=== PATIENT | female | born 1980 ===

== ENCOUNTER 2020-11-11 10:59 | Emergency (ER) | payer OTHER ==
--- NOTE | 2020-11-11 12:04 | Emergency Department Report ---
Blank Doc - Documentation Documentation: 40-year-old female that presents with lower abdominal pain, nausea, dysuria. Patient stated had a biopsy performed at another facility. 1- This is a initial triage assessment/medical screening only. Full assessment and work-up will be completed once the patient is in proper hospital gown, ED bed and in a private room setting. This initial assessment/diagnostic orders/clinical plan/ treatment(s) is/are subject to change based on pt's health status, clinical progression and re-assessment by fellow clinical providers in the ED. Further treatment and workup at subsequent clinical providers discretion. Patient/guardians urged not to elope from ED as their condition may be serious if not clinically assessed and managed. 2-labs 3-UA
[2020-11-11 12:51] LABS: Basophils % (Auto) 0.3 % (0.0-1.8); Eosinophils % (Auto) 0.5 % (0.0-4.3); Hematocrit 35.2 % (30.3-42.9); Hemoglobin 11.9 gm/dl (10.1-14.3); Lymphocytes # (Auto) 0.8 K/mm3 (1.2-5.4); Mean Corpuscular HGB Conc 34 % (30-34); Mean Corpuscular Volume 83 fl (79-97); Monocytes # (Auto) 0.4 K/mm3 (0.0-0.8); Monocytes % (Auto) 7.6 % (0.0-7.3); Platelet Count 218 K/mm3 (140-440); Red Blood Count 4.25 M/mm3 (3.65-5.03); Red Cell Distribution Width 14.7 % (13.2-15.2)
[2020-11-11 13:11] LABS: Alanine Aminotransferase 8 units/L (7-56); Albumin 4.2 g/dL (3.9-5); BUN/Creatinine Ratio 8; Blood Urea Nitrogen 4 mg/dL (7-17); Calcium 9.1 mg/dL (8.4-10.2); Hemolysis Index 0
[2020-11-11 13:42] LABS: Bacteria,Urine 1+ /HPF (Negative); Bilirubin,Urine NEG (Negative); Blood,Urine SM (Negative); Color,Urine Colorless (Yellow); Protein,Urine <15 mg/dL mg/dL (Negative); RBC,Urine < 1.0 /HPF (0.0-6.0); Urobilinogen,Urine < 2.0 mg/dL (<2.0)
[2020-11-11] MEDS ORDERED: SODIUM CHLORIDE 0.9% 1000 ML 1,000 ML IV ONE (17:16)
[2020-11-11] MEDS ORDERED: ONDANSETRON 4 MG/2 ML INJ IV ONE (17:16)
--- NOTE | 2020-11-11 17:21 | Emergency Department Report ---
ED Abdominal Pain HPI - General Chief Complaint: Abdominal Pain Stated Complaint: LOWER STOMACH PAIN Time Seen by Provider: 11/11/20 12:03 - History of Present Illness Initial Comments: Patient is 40 years old female with no significant past medical history. Patient presented to the ER complaining of lower abdominal pain for the last 2 days. Patient described her pain as suprapubic area with radiation to the right lower quadrant and left lower quadrant. Patient stated 10 associated with nausea but no vomiting. Patient stated that she felt sweaty this morning. Patient stated that she had a biopsy done for her in another facility. MD Complaint: abdominal pain -: days(s) Location: LLQ, RLQ, suprapubic Radiation: none Migration to: no migration Severity: moderate Associated Symptoms: nausea - Related Data Allergies Allergy/AdvReac Type Severity Reaction Status Date / Time No Known Allergies Allergy Unverified 11/11/20 11:57 ED Review of Systems ROS: Stated complaint: LOWER STOMACH PAIN Other details as noted in HPI Comment: All other systems reviewed and negative Constitutional: chills. denies: fever Respiratory: denies: cough, shortness of breath, SOB with exertion Cardiovascular: denies: chest pain, palpitations Gastrointestinal: abdominal pain, nausea. denies: vomiting, diarrhea, constipation, hematemesis, melena, hematochezia Genitourinary: dysuria. denies: frequency, hematuria Musculoskeletal: denies: back pain Neurological: denies: headache, weakness, numbness, paresthesias, confusion ED Physical Exam - General General appearance: alert, in no apparent distress - Head Head exam: Present: atraumatic, normocephalic, normal inspection - Eye Eye exam: Present: normal appearance, PERRL - ENT ENT exam: Present: mucous membranes dry - Neck Neck exam: Present: normal inspection, full ROM. Absent: tenderness, menin gismus - Respiratory Respiratory exam: Present: normal lung sounds bilaterally - Cardiovascular Cardiovascular Exam: Present: regular rate, normal rhythm, normal heart sounds - GI/Abdominal GI/Abdominal exam: Present: soft, tenderness, normal bowel sounds. Absent: distended, guarding, rebound, rigid, organomegaly, mass, bruit, pulsatile mass, hernia - Extremities Exam Extremities exam: Present: normal inspection, full ROM, normal capillary refill. Absent: tenderness - Back Exam Back exam: Present: normal inspection, full ROM. Absent: CVA tenderness (R), CVA tenderness (L) - Neurological Exam Neurological exam: Present: alert, oriented X3, CN II-XII intact, normal gait, reflexes normal. Absent: motor sensory deficit - Psychiatric Psychiatric exam: Present: normal mood - Skin Skin exam: Present: warm, intact, normal color ED Course Vital Signs 11/11/20 12:00 Temperature 97.9 F Pulse Rate 65 Respiratory 18 Rate Blood Pressure 114/67 O2 Sat by Pulse 99 Oximetry ED Medical Decision Making - Lab Data Result diagrams: 11/11/20 12:22 11/11/20 12:22 - Radiology Data Radiology results: report reviewed - Medical Decision Making Patient is 40 years old female with no significant past medical history. Patient presented to the ER complaining of lower abdominal pain for the last 2 days. Patient described her pain as suprapubic area with radiation to the right lower quadrant and left lower quadrant. Patient stated 10 associated with nausea but no vomiting. Patient stated that she felt sweaty this morning. Patient stated that she had a biopsy done for her in another facility. Labs reviewed and is unremarkable. CT abdomen and pelvis with IV contrast show no acute abnormality except for urinary bladder wall thickening consistent with cystitis. Patient will be treated with Macrobid, Pyridium and Zofran. Patient advised to follow-up with her primary doctor in the next 2 to 3 days and to return to the ER if she develop any new symptoms. Critical care attestation.: If time is entered above; I have spent that time in minutes in the direct care of this critically ill patient, excluding procedure time. ED Disposition Clinical Impression: Acute abdominal pain, Acute cystitis Disposition: 01 HOME / SELF CARE / HOMELESS Is pt being admited?: No Condition: Stable Instructions: Abdominal Pain (ED), Urinary Tract Infection, Adult, [id number], Abdominal Pain, Adult, [id number] Referrals: PRIMARY CARE [Primary Care Provider] - 3-5 Days [facility] [Provider Group] - 3-5 Days
--- NOTE | 2020-11-11 18:34 | Cat Scan Report ---
CT ABDOMEN AND PELVIS WITH CONTRAST INDICATION / CLINICAL INFORMATION: abdominal pain. TECHNIQUE: Axial CT images were obtained through the abdomen and pelvis after 100 mL of Omnipaque [address] scans at this location are performed using CT dose reduction for ALARA by means of automated exposure control. COMPARISON: None available. FINDINGS: LOWER CHEST: No significant abnormality. LIVER: No significant abnormality. GALLBLADDER: No significant abnormality. BILE DUCTS: No significant abnormality. PANCREAS: No significant abnormality. SPLEEN: No significant abnormality. ADRENALS: No significant abnormality. RIGHT KIDNEY / URETER: No significant abnormality. LEFT KIDNEY / URETER: No significant abnormality. STOMACH / SMALL BOWEL: No significant abnormality. COLON: No significant abnormality. APPENDIX: Not visualized but no evidence of. PERITONEUM: No free fluid. No free air. No fluid collection. LYMPH NODES: There are multiple prominent periaortic lymph nodes. Additional bilateral inguinal lymph nodes and iliac chain lymph nodes. AORTA / ARTERIES: No significant abnormality. IVC / VEINS: No significant abnormality. URINARY BLADDER: There is mild stranding around the urinary bladder with mild wall thickening. REPRODUCTIVE ORGANS: There are multiple right adnexal cyst largest measuring approximately 2.2 cm, li terri physiologic. Mild thickening of the endometrial canal. ADDITIONAL FINDINGS: None. SKELETAL SYSTEM: No significant abnormality. IMPRESSION: 1. Mild urinary bladder wall thickening with stranding is suggestive of cystitis. Recommend clinical correlation with urinalysis. 2. Mild thickening of the endometrial canal and cervix. Recommend clinical correlation for cervicitis . 3. Para-aortic, inguinal, and iliac chain lymphadenopathy is likely reactive. Recommend follow-up exa m to ensure resolution. Signer Name: Chucky Elizalde MD Signed: 11/11/2020 6:30 PM Workstation Name: [id number]
[2020-11-11 23:04] VITALS: BP 111/62
== END 2020-11-11 19:50 | disposition home or self-care (01) ==
LOC: ED 10:59
DX: N30.00 Acute cystitis without hematuria (principal); R10.31 Right lower quadrant pain
CPT/HCPCS: 36415; 74177; 80053; 81001; 83690; 84703; 85025; 96361; 96374; 99284; J2405; J7030; Q9967